=== PATIENT | male | born 2000 | race Caucasian/White ===

== ENCOUNTER 2023-10-14 22:14 | Emergency (ER) | payer MEDICAID ==
[~2023-10-14] VITALS: Ht 177.8 cm; Wt 113.0 kg
[2023-10-14 22:17] VITALS: BP 125/65; RESP 15; TEMP 98.7; O2SAT 95
[2023-10-14 22:24] VITALS: PULSE 125
== END 2023-10-15 02:54 | disposition home or self-care (01) ==
LOC: ER 22:14
DX: F41.0 Panic disorder [episodic paroxysmal anxiety] (principal); R06.02 Shortness of breath; R00.2 Palpitations
CPT/HCPCS: 71045; 93005; 99283